=== PATIENT | male | born 1995 ===

== ENCOUNTER 2019-06-01 17:29 | Emergency (ER) | payer SELFPAY ==
--- NOTE | 2019-06-01 18:34 | Emergency Department Report ---
Blank Doc - Documentation Documentation: 23-year-old male that presents with abdominal pain with n/v. This initial assessment/diagnostic orders/clinical plan/treatment(s) is/are subject to change based on patient's health status, clinical progression and re- assessment by fellow clinical providers in the ED. Further treatment and workup at subsequent clinical providers discretion. Patient/guardians urged not to elope from the ED as their condition may be serious if not clinically assessed and managed. Initial orders include: 1- Patient sent to [facility] for further evaluation and treatment 2- labs 3- UA
[2019-06-01 18:36] VITALS: BP 114/78
[2019-06-01 19:42] LABS: Basophils # (Auto) 0.1 K/mm3 (0.0-0.1); Basophils % (Auto) 0.7 % (0.0-1.8); Eosinophils % (Auto) 0.5 % (0.0-4.3); Hematocrit 41.3 % (35.5-45.6); Hemoglobin 13.7 gm/dl (11.8-15.2); Lymphocytes # (Auto) 1.3 K/mm3 (1.2-5.4); Lymphocytes % (Auto) 15.2 % (13.4-35.0); Mean Corpuscular HGB Conc 33 % (32-34); Mean Corpuscular Volume 90 fl (84-94); Monocytes # (Auto) 0.5 K/mm3 (0.0-0.8); Monocytes % (Auto) 6.1 % (0.0-7.3); Platelet Count 228 K/mm3 (140-440); Red Blood Count 4.59 M/mm3 (3.65-5.03); Red Cell Distribution Width 14.4 % (13.2-15.2)
[2019-06-01 20:00] LABS: Alanine Aminotransferase 16 units/L (7-56); Albumin 3.8 g/dL (3.9-5); BUN/Creatinine Ratio 18; Blood Urea Nitrogen 14 mg/dL (9-20); Calcium 8.9 mg/dL (8.4-10.2); Hemolysis Index 12
[2019-06-01 21:18] LABS: Bilirubin,Urine NEG (Negative); Blood,Urine NEG (Negative); Color,Urine Yellow (Yellow); Mucus,Urine FEW /HPF; Protein,Urine <15 mg/dL mg/dL (Negative); RBC,Urine < 1.0 /HPF (0.0-6.0); WBC,Urine < 1.0 /HPF (0.0-6.0)
== END 2019-06-02 00:10 | disposition left against medical advice (07) ==
LOC: ED 17:29
DX: R10.9 Unspecified abdominal pain (principal); Z53.21 Procedure and treatment not carried out due to patient leaving prior to being seen by health care provider
CPT/HCPCS: 36415; 80053; 81001; 83690; 85025

== ENCOUNTER 2019-07-06 01:56 | Emergency (ER) | payer SELFPAY ==
[2019-07-06 02:05] VITALS: BP 107/71
[2019-07-06 02:58] LABS: Basophils # (Auto) 0.1 K/mm3 (0.0-0.1); Basophils % (Auto) 0.9 % (0.0-1.8); Eosinophils # (Auto) 0.1 K/mm3 (0.0-0.4); Eosinophils % (Auto) 1.5 % (0.0-4.3); Hematocrit 40.4 % (35.5-45.6); Lymphocytes # (Auto) 2.4 K/mm3 (1.2-5.4); Lymphocytes % (Auto) 39.6 % (13.4-35.0); Mean Corpuscular HGB Conc 35 % (32-34); Mean Corpuscular Volume 88 fl (84-94); Monocytes # (Auto) 0.5 K/mm3 (0.0-0.8); Monocytes % (Auto) 8.6 % (0.0-7.3); Platelet Count 181 K/mm3 (140-440); Red Blood Count 4.61 M/mm3 (3.65-5.03)
[2019-07-06 03:01] LABS: Bilirubin,Urine NEG (Negative); Blood,Urine NEG (Negative); Color,Urine Yellow (Yellow); Mucus,Urine 2+ /HPF; Protein,Urine <15 mg/dL mg/dL (Negative)
[2019-07-06 03:19] LABS: Alanine Aminotransferase 18 units/L (7-56); Albumin 3.8 g/dL (3.9-5); BUN/Creatinine Ratio 20; Blood Urea Nitrogen 18 mg/dL (9-20); Calcium 8.9 mg/dL (8.4-10.2); Hemolysis Index 13
[2019-07-06] MEDS ORDERED: HYOSCYAMINE SUBL 0.125 MG TAB SL ONE (03:30)
[2019-07-06] MEDS ORDERED: ONDANSETRON 4 MG ODT TAB PO ONE (03:30)
--- NOTE | 2019-07-06 03:40 | Emergency Department Report ---
ED Abdominal Pain HPI - General Chief Complaint: Abdominal Pain Stated Complaint: NAUSEA/ABD PAIN/HEADACHE Time Seen by Provider: 07/06/19 02:53 Source: patient Mode of arrival: Ambulatory Limitations: No Limitations - History of Present Illness Initial Comments: Patient is a 23-year-old male presents emergency room with complaints of upper abdominal cramping and burning sensation that began at 1 AM this morning. He has associated nausea and vomiting. He states he had 2 small episodes of vomiting. He denies any diarrhea, fever, urinary symptoms, pain or swelling in the testicles, issues with bowel movements, hematemesis. He states he has exper ienced these symptoms in the past, he states one time it was secondary to alcohol and the other one was secondary to food poisoning. He denies any alcohol use tonight. He states that he ate checkers and a few hours later began to experience the symptoms. He denies any sick contacts or recent travel. He denies any past medical history or allergies to medications. - Related Data Previous Rx's Medication Instructions Recorded Last Taken Type Famotidine [Pepcid] 40 mg PO QHS #14 tablet 07/06/19 Unknown Rx Ondansetron [Zofran Odt] 4 mg PO Q8HR PRN #12 tab.rapdis 07/06/19 Unknown Rx Allergies Allergy/AdvReac Type Severity Reaction Status Date / Time No Known Allergies Allergy Unverified 06/01/19 17:39 ED Review of Systems ROS: Stated complaint: NAUSEA/ABD PAIN/HEADACHE Other details as noted in HPI Comment: All other systems reviewed and negative ED Past Medical Hx - Past Medical History Previous Medical History?: No - Surgical History Past Surgical History?: No - Social History Smoking Status: Current Every Day Smoker - Medications Home Medications: Home Medications Medication Instructions Recorded Confirmed Last Taken Type Famotidine [Pepcid] 40 mg PO QHS #14 tablet 07/06/19 Unknown Rx Ondansetron [Zofran Odt] 4 mg PO Q8HR PRN #12 tab.rapdis 07/06/19 Unknown Rx ED Physical Exam - General Limitations: No Limitations General appearance: alert, in no apparent distress - Head Head exam: Present: atraumatic, normocephalic - Eye Eye exam: Present: normal appearance - ENT ENT exam: Present: mucous membranes moist - Respiratory Respiratory exam: Present: normal lung sounds bilaterally. Absent: respiratory distress, wheezes, rales, rhonchi, stridor, chest wall tenderness, accessory muscle use, decreased breath sounds, prolonged expiratory - Cardiovascular Cardiovascular Exam: Present: regular rate, normal rhythm, normal heart sounds. Absent: systolic murmur, diastolic murmur, rubs, gallop - GI/Abdominal GI/Abdominal exam: Present: soft, normal bowel sounds, other (negative murphys sign, no mcburneys point ttp, negative marrero turners and cullens sign). Absent: distended, tenderness, guarding, rebound, rigid - Neurological Exam Neurological exam: Present: alert, oriented X3 - Psychiatric Psychiatric exam: Present: normal affect, normal mood - Skin Skin exam: Present: warm, dry, intact ED Course Vital Signs 07/06/19 07/06/19 02:02 02:04 Temperature 97.7 F Pulse Rate 66 Respiratory 16 Rate Blood Pressure 107/71 O2 Sat by Pulse 99 Oximetry ED Medical Decision Making - Lab Data Result diagrams: 07/06/19 02:20 07/06/19 02:20 Lab Results 07/06/19 07/06/19 07/06/19 Range/Units 02:20 02:20 02:20 WBC 6.1 (4.5-11.0) K/mm3 RBC 4.61 (3.65-5.03) M/mm3 Hgb 14.0 (11.8-15.2) gm/dl Hct 40.4 (35.5-45.6) % MCV 88 (84-94) fl MCH 30 (28-32) pg MCHC 35 H (32-34) % RDW 16.0 H (13.2-15.2) % Plt Count 181 (140-440) K/mm3 Lymph % (Auto) 39.6 H (13.4-35.0) % Towns % (Auto) 8.6 H (0.0-7.3) % Eos % (Auto) 1.5 (0.0-4.3) % Baso % (Auto) 0.9 (0.0-1.8) % Lymph # 2.4 (1.2-5.4) K/mm3 Towns # 0.5 (0.0-0.8) K/mm3 Eos # 0.1 (0.0-0.4) K/mm3 Baso # 0.1 (0.0-0.1) K/mm3 Seg Neutrophils % 49.4 (40.0-70.0) % Seg Neutrophils # 3.0 (1.8-7.7) K/mm3 Sodium 143 (137-145) mmol/L Potassium 3.7 (3.6-5.0) mmol/L Chloride 107.8 H (98-107) mmol/L Carbon Dioxide 27 (22-30) mmol/L Anion Gap 12 mmol/L BUN 18 (9-20) mg/dL Creatinine 0.9 (0.8-1.5) mg/dL Estimated GFR > 60 ml/min BUN/Creatinine Ratio 20 % Glucose 136 H (75-100) mg/dL Calcium 8.9 (8.4-10.2) mg/dL Total Bilirubin 0.40 (0.1-1.2) mg/dL AST 17 (5-40) units/L ALT 18 (7-56) units/L Alkaline Phosphatase 56 (35-129) units/L Total Protein 6.4 (6.3-8.2) g/dL Albumin 3.8 L (3.9-5) g/dL Albumin/Globulin Ratio 1.5 % Lipase 39 (13-60) units/L Urine Color (Yellow) Urine Turbidity (Clear) Urine pH (5.0-7.0) Ur Specific Terral (1.003-1.030) Urine Protein (Negative) mg/dL Urine Glucose (UA) (Negative) mg/dL Urine Ketones (Negative) mg/dL Urine Blood (Negative) Urine Nitrite (Negative) Urine Bilirubin (Negative) Urine Urobilinogen (<2.0) mg/dL Ur Leukocyte Esterase (Negative) Urine WBC (Auto) (0.0-6.0) /HPF Urine RBC (Auto) (0.0-6.0) /HPF U Epithel Cells (Auto) (0-13.0) /HPF Urine Mucus /HPF 07/06/19 Range/Units 02:43 WBC (4.5-11.0) K/mm3 RBC (3.65-5.03) M/mm3 Hgb (11.8-15.2) gm/dl Hct (35.5-45.6) % MCV (84-94) fl MCH (28-32) pg MCHC (32-34) % RDW (13.2-15.2) % Plt Count (140-440) K/mm3 Lymph % (Auto) (13.4-35.0) % Towns % (Auto) (0.0-7.3) % Eos % (Auto) (0.0-4.3) % Baso % (Auto) (0.0-1.8) % Lymph # (1.2-5.4) K/mm3 Towns # (0.0-0.8) K/mm3 Eos # (0.0-0.4) K/mm3 Baso # (0.0-0.1) K/mm3 Seg Neutrophils % (40.0-70.0) % Seg Neutrophils # (1.8-7.7) K/mm3 Sodium (137-145) mmol/L Potassium (3.6-5.0) mmol/L Chloride (98-107) mmol/L Carbon Dioxide (22-30) mmol/L Anion Gap mmol/L BUN (9-20) mg/dL Creatinine (0.8-1.5) mg/dL Estimated GFR ml/min BUN/Creatinine Ratio % Glucose (75-100) mg/dL Calcium (8.4-10.2) mg/dL Total Bilirubin (0.1-1.2) mg/dL AST (5-40) units/L ALT (7-56) units/L Alkaline Phosphatase (35-129) units/L Total Protein (6.3-8.2) g/dL Albumin (3.9-5) g/dL Albumin/Globulin Ratio % Lipase (13-60) units/L Urine Color Yellow (Yellow) Urine Turbidity Clear (Clear) Urine pH 6.0 (5.0-7.0) Ur Specific Terral 1.023 (1.003-1.030) Urine Protein <15 mg/dl (Negative) mg/dL Urine Glucose (UA) Neg (Negative) mg/dL Urine Ketones Neg (Negative) mg/dL Urine Blood Neg (Negative) Urine Nitrite Neg (Negative) Urine Bilirubin Neg (Negative) Urine Urobilinogen 4.0 (<2.0) mg/dL Ur Leukocyte Esterase Neg (Negative) Urine WBC (Auto) 1.0 (0.0-6.0) /HPF Urine RBC (Auto) 0.0 (0.0-6.0) /HPF U Epithel Cells (Auto) < 1.0 (0-13.0) /HPF Urine Mucus 2+ /HPF - Medical Decision Making Patient is a 23-year-old male presents emergency room with complaints of upper abdominal cramping and burning sensation that began at 1 AM this morning. He has associated nausea and vomiting. He states he had 2 small episodes of vomiting. He denies any diarrhea, fever, urinary symptoms, pain or swelling in the testicles, issues with bowel movements, hematemesis. He states he has experienced these symptoms in the past, he states one time it was secondary to alcohol and the other one was secondary to food poisoning. He denies any alcohol use tonight. He states that he ate checkers and a few hours later began to experience the symptoms. He denies any sick contacts or recent travel. He denies any past medical history or allergies to medications. Vitals are normal. On exam no abdominal tenderness to palpation, no guarding, no rebound, no rigidity, negative Ochoa sign, negative McBurney's point tenderness, negative Marrero Oro and Luis sign. Labs are stable. UA without evidence of infection or dehydration. Patient given Levsin and Zofran and symptoms completely impro rasheeda. Patient was able to tolerate the p.o. medications without difficulty. Patient was p.o. challenge and able to tolerate by mouth intake without any difficulty. Patient given prescription for Pepcid and Zofran. Advised patient Please take medication as prescribed. Increase your water intake over the next several days. Eat a bland diet. Avoid anything greasy or sugary. Follow-up with a primary care doctor. Follow-up with a GI doctor. Return to the emergency room for any new or worsening symptoms including but not limited to worsening abdominal pain, fever, unable to tolerate by mouth intake, blood in the vomit, etc. - Differential Diagnosis PUD, GERD, cholecystitis, cholelithiasis, gastritis, pancreatitis, viral Critical care attestation.: If time is entered above; I have spent that time in minutes in the direct care of this critically ill patient, excluding procedure time. ED Disposition Clinical Impression: Abdominal cramping Nausea & vomiting Qualifiers: Vomiting type: unspecified Vomiting Intractability: non-intractable Qualified Code(s): R11.2 - Nausea with vomiting, unspecified Disposition: DC-01 TO HOME OR SELFCARE Is pt being admited?: No Does the pt Need Aspirin: No Condition: Stable Instructions: Gastritis (ED), Acute Nausea and Vomiting (ED) Additional Instructions: Please take medication as prescribed. Increase your water intake over the next several days. Eat a bland diet. Avoid anything greasy or sugary. Follow-up with a primary care doctor. Follow-up with a GI doctor. Return to the emergency room for any new or worsening symptoms including but not limited to worsening abdominal pain, fever, unable to tolerate by mouth intake, blood in the vomit, etc. Prescriptions: Famotidine [Pepcid] 40 mg PO QHS #14 tablet Ondansetron [Zofran Odt] 4 mg PO Q8HR PRN #12 tab.rapdis PRN Reason: Nausea And Vomiting Referrals: [facility] [Provider Group] - 3-5 Days [facility] [Outside] - 3-5 Days [facility] [Outside] - 3-5 Days [facility] [Provider Group] - 3-5 Days ANUPAM BURGOS MD [Staff Physician] - 3-5 Days Time of Disposition: 04:22 Print Language: PERUVIAN
== END 2019-07-06 04:41 | disposition home or self-care (01) ==
LOC: ED 01:56
DX: R11.2 Nausea with vomiting, unspecified (principal); R10.9 Unspecified abdominal pain; F17.200 Nicotine dependence, unspecified, uncomplicated; Z79.899 Other long term (current) drug therapy
CPT/HCPCS: 36415; 80053; 81001; 83690; 85025; Q0162

== ENCOUNTER 2019-08-07 18:56 | Emergency (ER) | payer SELFPAY ==
[2019-08-07 19:18] VITALS: BP 101/66
[2019-08-07] MEDS ORDERED: ONDANSETRON 4 MG ODT TAB PO ONE (20:03)
--- NOTE | 2019-08-07 20:08 | Emergency Department Report ---
ED General Adult HPI - General Chief complaint: Headache Stated complaint: FODD POISIONING Time Seen by Provider: 08/07/19 19:45 Source: patient Mode of arrival: Ambulatory Limitations: No Limitations - History of Present Illness Initial comments: 23-year-old -[place] male presents to the emergency room stating that his tongue went numb dry mouth nausea and headache x1 hour after drinking milkshake. Patient reports he feels he has food poisoning. Patient does admit that he drinks alcohol smokes cigarettes and week. Patient has no past medical history currently takes no medications on a daily basis and has no known drug allergies - Related Data Previous Rx's Medication Instructions Recorded Last Taken Type Famotidine [Pepcid] 40 mg PO QHS #14 tablet 07/06/19 Unknown Rx Ondansetron [Zofran Odt] 4 mg PO Q8HR PRN #12 tab.rapdis 07/06/19 Unknown Rx Allergies Allergy/AdvReac Type Severity Reaction Status Date / Time No Known Allergies Allergy Unverified 06/01/19 17:39 ED Review of Systems ROS: Stated complaint: FODD POISIONING Other details as noted in HPI ED Past Medical Hx - Past Medical History Previous Medical History?: No - Surgical History Past Surgical History?: No - Social History Smoking Status: Current Every Day Smoker Substance Use Type: Alcohol, Marijuana - Medications Home Medications: Home Medications Medication Instructions Recorded Confirmed Last Taken Type Famotidine [Pepcid] 40 mg PO QHS #14 tablet 07/06/19 Unknown Rx Ondansetron [Zofran Odt] 4 mg PO Q8HR PRN #12 tab.rapdis 07/06/19 Unknown Rx ED Physical Exam - General Limitations: No Limitations General appearance: alert, in no apparent distress - Head Head exam: Present: atraumatic, normocephalic - Eye Eye exam: Present: normal appearance - ENT ENT exam: Present: mucous membranes moist - Neck Neck exam: Present: normal inspection, full ROM - Respiratory Respiratory exam: Present: normal lung sounds bilaterally - Cardiovascular Cardiovascular Exam: Present: regular rate, normal rhythm. Absent: systolic murmur, diastolic murmur, rubs, gallop - GI/Abdominal GI/Abdominal exam: Present: soft, normal bowel sounds. Absent: distended, tenderness, guarding, rebound - Extremities Exam Extremities exam: Present: normal inspection - Back Exam Back exam: Present: normal inspection - Neurological Exam Neurological exam: Present: alert - Psychiatric Psychiatric exam: Present: agitated - Skin Skin exam: Present: warm, dry, intact, normal color. Absent: rash ED Course Vital Signs 08/07/19 19:16 Temperature 99.0 F Pulse Rate 78 Respiratory 50 H Rate Blood Pressure 101/66 O2 Sat by Pulse 97 Oximetry ED Medical Decision Making - Medical Decision Making 23-year-old -[place] male presents to the emergency room stating that his tongue went numb dry mouth nausea and headache x1 hour after drinking milkshake. Patient reports he feels he has food poisoning. Patient does admit that he drinks alcohol smokes cigarettes and week. Patient has no past medical history currently takes no medications on a daily basis and has no known drug allergies. Zofran was ordered for patient. Nurse reports patient eloped. Critical care attestation.: If time is entered above; I have spent that time in minutes in the direct care of this critically ill patient, excluding procedure time. ED Disposition Clinical Impression: Nausea Disposition: Z-07 ELOPED Is pt being admited?: No Does the pt Need Aspirin: No Condition: Stable
== END 2019-08-07 20:05 | disposition left against medical advice (07) ==
LOC: ED 18:56
DX: R11.0 Nausea (principal); R51 Headache; F17.200 Nicotine dependence, unspecified, uncomplicated; F12.10 Cannabis abuse, uncomplicated; Z79.899 Other long term (current) drug therapy
CPT/HCPCS: 99282